=== PATIENT | male | born 1990 | race Hispanic/Latino ===

== ENCOUNTER 2018-10-26 07:45 | Inpatient (IN) | payer OTHER, SELFPAY ==
[2018-10-26] MEDS ORDERED: Morphine 4 MG/ML VIAL ONE (08:25)
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
[2018-10-26 09:10] LABS: #Eosinphils 0.1 thou/uL (0.0-0.7); #Lymphocytes 1.1 thou/uL (1.20-3.40); #Monocytes 0.5 thou/uL (0.11-0.59); #Neutrophils 11.8 thou/uL (1.40-6.50); %Basophils 0.2 % (0.0-1.0); %Eosinophils 0.6 % (0.0-10.0); %Lymphocytes 8.1 % (21.0-51.0); Hemoglobin 16.2 g/dL (14.0-18.0); Mean Corpuscular HGB CONC 34.8 g/dL (32.0-36.0); Mean Corpuscular Hemoglobin 30.2 pg (27.0-31.0); Mean Platelet Volume 10.3 fL (7.4-10.4); Platelet Count 182 thou/uL (130-400); Red Blood Cell (RBC) Count 5.36 mill/uL (4.70-6.10); White Blood Cell (WBC) Count 13.6 thou/uL (4.8-10.8)
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
[2018-10-26 09:17] LABS: PTT 23.7 SEC (22.9-36.1); Prothrombin Time 13.4 SEC (12.0-14.7)
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
[2018-10-26 09:34] LABS: ALT (SGPT) 41 U/L (8-55); AST (SGOT) 41 U/L (5-34); Albumin 4.5 g/dL (3.5-5.0); Alkaline Phosphatase 68 U/L (40-150); Anion Gap 10 mmol/L (10-20); BUN (Urea Nitrogen) 14 mg/dL (8.9-20.6); Bilirubin, Total 0.6 mg/dL (0.2-1.2); Calc. Creatinine Clearance 0 mL/min (70-130); Calcium 9.1 mg/dL (7.8-10.44); Carbon Dioxide 25 mmol/L (22-29); Chloride 103 mmol/L (98-107); Estimated GFR-MDRD Greater than 90; Globulin 2.6 g/dL (2.4-3.5); Glucose 122 mg/dL (70-105); Potassium 3.6 mmol/L (3.5-5.1); Protein, Total 7.1 g/dL (6.0-8.3); Sodium 134 mmol/L (136-145)
[2018-10-26] MEDS ORDERED: Bupivacaine HCl 0.5%/Epinephrine 1:200,000/PF 30 ml Vial ONE (09:54)
[2018-10-26] MEDS ORDERED: Sodium Chloride 0.9% 10 ML ONE ×2 (09:55→13:57)
[2018-10-26] MEDS ORDERED: Bacitracin Zinc Ointment 30 gm TUBE ONE (09:55)
[2018-10-26] MEDS ORDERED: Thrombin 5000 UNITS/5 ML VIAL ONE (09:55)
[2018-10-26] MEDS ORDERED: Dexamethasone 10 MG/ML VIAL ONE (10:15)
[2018-10-26] MEDS ORDERED: ISOVUE-370 76%-LOCM 1 ML ONE (10:25)
[2018-10-26] MEDS ORDERED: Ondansetron PF 4 MG/2 ML Vial ONE ×2 (10:27→13:06)
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
[2018-10-26] MEDS ORDERED: HYDROmorphone 2 MG/ML VIAL ONE (11:29)
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
[2018-10-26] MEDS ORDERED: PROPOFOL 200 MG/20 ML VIAL ONE (13:06)
[2018-10-26] MEDS ORDERED: Metoclopramide HCl 10 MG/2 ML VIAL ONE (13:06)
[2018-10-26] MEDS ORDERED: Lidocaine 1% PF 5 ML VIAL ONE (13:06)
[2018-10-26] MEDS ORDERED: Rocuronium Bromide 10 MG/ML (10ML VIAL) ONE (13:06)
[2018-10-26] MEDS ORDERED: Succinylcholine Chloride 20 MG/ML 10 ml SYRINGE FS ONE (13:06)
[2018-10-26] MEDS ORDERED: Glycopyrrolate 0.2 MG/ML 5 ML SYRINGE ONE (13:06)
[2018-10-26] MEDS ORDERED: PHENYLEPHRINE-NS 100 MCG/ML 10 ML SYRINGE ONE (13:06)
[2018-10-26] MEDS ORDERED: ePHEDrine 50 MG/ML VIAL ONE (13:06)
[2018-10-26] MEDS ORDERED: Dexamethasone 20 MG/5 ML VIAL ONE (13:06)
[2018-10-26] MEDS ORDERED: CEFAZOLIN 1 GM VIAL ONE (15:36)
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
[2018-10-26] MEDS ORDERED: Mag-Al 1200 mg/1200 mg/30 ML UDCUP PO PRN (15:40)
[2018-10-26] MEDS ORDERED: Ondansetron PF 4 MG/2 ML Vial IVP PRN (15:40)
[2018-10-26] MEDS ORDERED: Morphine 4 MG/ML VIAL SLOW IVP PRN (15:40)
[2018-10-26] MEDS ORDERED: Morphine 2 MG/ML SYRINGE SLOW IVP PRN (15:40)
[2018-10-26] MEDS ORDERED: Bisacodyl 10 MG SUPP PR PRN (15:40)
[2018-10-26] MEDS ORDERED: Promethazine HCl 25 MG/ML VIAL IM PRN ×4 (15:40→18:01)
[2018-10-26] MEDS ORDERED: diphenhydrAMINE 25 MG CAP PO PRN (15:40)
[2018-10-26] MEDS ORDERED: diphenhydrAMINE 50 MG/ML VIAL IVP PRN (15:40)
[2018-10-26] MEDS ORDERED: Acetaminophen/Codeine 30-300mg Tablet PO PRN ×2 (15:40)
[2018-10-26] MEDS ORDERED: traMADol HCl 50 MG TAB PO PRN ×3 (15:40→18:01)
[2018-10-26] MEDS ORDERED: Acetaminophen 325 MG TAB PO PRN (15:40)
[2018-10-26] MEDS ORDERED: tiZANidine HCl 4 MG TAB PO PRN (15:40)
[2018-10-26] MEDS ORDERED: Promethazine 25 MG TAB PO PRN (15:40)
[2018-10-26] MEDS ORDERED: Milk Of Magnesia 30 ML UDCUP PO PRN (15:40)
[2018-10-26] MEDS ORDERED: Promethazine HCl 25 MG/ML VIAL SLOW IVP PRN (15:56)
[2018-10-26] MEDS ORDERED: Acetaminophen 1,000 MG in Premix Bag 1 BAG IVPB PRN (15:56)
[2018-10-26] MEDS ORDERED: Meperidine HCl/PF 25 MG/ML VIAL SLOW IVP PRN (15:56)
[2018-10-26] MEDS ORDERED: Ketorolac Tromethamine 30 MG/ML VIAL IVP PRN (15:56)
[2018-10-26] MEDS ORDERED: Ondansetron HCl/PF 4 MG/2 ML Vial IVP PRN (15:56)
[2018-10-26] MEDS ORDERED: Meperidine HCl/PF 25 MG/ML VIAL ONE (15:59)
[2018-10-26] MEDS ORDERED: Fentanyl 100 MCG/2 ML VIAL ONE ×2 (16:15→16:30)
[2018-10-26] MEDS ORDERED: Esmolol 100 MG/10 ML VIAL ONE (16:26)
[2018-10-26] MEDS ORDERED: Metoprolol Tartrate 5 MG/5 ML VIAL ONE (17:44)
[2018-10-26] MEDS ORDERED: Dexamethasone 4 mg/ml Vial ONE (17:56)
[2018-10-26] MEDS ORDERED: Metoprolol Tartrate 5 MG/5 ML VIAL IVP PRN ×2 (17:56→17:57)
[2018-10-26] MEDS ORDERED: Dextrose 50% Abboject 50 ML SYRINGE SLOW IVP PRN (18:01)
[2018-10-26] MEDS ORDERED: Ondansetron ODT 4 MG TAB PO PRN (18:01)
[2018-10-26] MEDS ORDERED: hydrALAZINE 20 MG/ML VIAL SLOW IVP PRN (18:01)
[2018-10-26] MEDS ORDERED: Acetaminophen 1,000 MG in Premix Bag 1 BAG IVPB SCH (18:01)
[2018-10-26] MEDS ORDERED: Dextrose 5% in Water 1,000 ML IV PRN (18:01)
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
--- NOTE | 2018-10-26 20:00 | OP ---
DATE OF PROCEDURE: 10/26/2018 BISQUE KILN PLACER: Diana Wright PA-C. PREOPERATIVE INDICATION: Prevent neurological deterioration. PREOPERATIVE DIAGNOSES: C6-C7 fracture dislocation with bilateral jumped facets, lateral mass fractures C6-C7 on the left side. POSTOPERATIVE DIAGNOSES: C6-C7 fracture dislocation with bilateral jumped facets, lateral mass fractures C6-C7 on the left side. PROCEDURES PERFORMED: Part one: Anterior cervical diskectomy, intervertebral arthrodesis, and placement of intervertebral biomechanical device C6-C7, anterior cervical plating C6-C7, local morselized autograft, morselized allograft, and operating microscope. Part two: C6-C7 laminectomy, wide left-sided C6-C7 foraminotomy, reduction of loose fracture fragments off the nerve root, lateral mass screw and karlos instrumentation with posterolateral arthrodesis at C6-C7. DESCRIPTION OF PROCEDURE: Part one: The patient was brought to the operating room. Keeping the neck in normal anatomic alignment and the cervical collar on. The patient was carefully positioned on the operating table with his head supported by a doughnut-shaped headrest. General endotracheal anesthesia was induced using a direct visualization with a scope of the vocal cords. A lateral fluoro radiograph was used to plan our incision. The right side of the neck was sterilely prepped and draped. We opened with a 10 blade knife and controlled bleeding with bipolar cautery. We dissected sharply to the platysma and cut this muscle in line with our incision. We continued our dissection medial to the sternocleidomastoid and lateral to the trachea and esophagus down the prevertebral space. There were no unusual findings during our dissection except for a blood products at the C6-C7 interspace in the longus colli muscles. A lateral fluoro radiograph confirmed the levels upon which we were operating. With the patient under general anesthesia, we applied gentle traction to the neck externally and this immediately reduce the subluxation. C6 and C7 were in alignment. We elevated the longus colli muscles off the anterior surface of C6 and C7, and placed a self-retaining retractor beneath them. Distraction pins were placed at C6 and C7, and we distracted across the interspace. There was no structural integrity to the interspace. We incised with a 15 blade knife and removed disk contents using curettes and rongeurs. As we approached the posterior longitudinal ligament, the operative microscope was brought into the field. Under microscopic magnification and using microsurgical techniques, we carefully removed the remainder of the intervertebral disk. Using a micro curette, we accessed the ventral epidural space behind the posterior longitudinal ligament. In the midline, CSF egress was noted from the ventral epidural space, which was significant. The dura had been disrupted by the fracture dislocation. We left some strands of posterior longitudinal ligament, but used a micro ball probe to ensure there was no disk material in the ventral epidural space and no compression of the dura. We widely open both neural foramina as well. We then turned our attention to arthrodesis. Using curettes, we prepared the endplates for grafting by removing the cartilaginous cap. A 9-mm bone rasp was brought into the field to measure the height of the interspace. This also prepared the bones for arthrodesis. Osteophytes removed during our decompression and exposure cleaned their soft tissue attachments morcellized and added to demineralized bone matrix as our fusion substrate. The substrate was packed into the 9 mm PEEK graft that we brought into the field. Before placement of the interbody device, we used Tisseel tissue sealant at the back of the interspace to stem and tie the CSF. We then placed the interbody graft in position under radiographic guidance. Distraction pins were removed, and a 14 mm anterior cervical plate was brought into the field. We drilled airline pilot holes through the plate into the vertebral bodies at C6 and C7 and affixed the plate using 14 mm screws. We used fixed angle screws at C7 and variable angle screws at C6. We engaged the locking mechanism over each of the 4 screws. We irrigated with bacitracin irrigation. We then used Tisseel tissue sealant around the sides of the plate and prevertebral space to control CSF as well. We then used vancomycin powder in the wound, we closed the wound in anatomical layers, and we applied a sterile dressing. This portion of the case was clean. No contamination. Part two: Because of the laxity of the interspace, and the presence of CSF egress, we decided that future surgical intervention should be avoided at all costs and decided to proceed with the posterior instrumentation as well. This would provide structural integrity, where the facet capsules had been completely disrupted. Garnett pin and overhead crane technician were carefully attached to the patient's head. Keep the neck in normal anatomic alignment, the patient was rolled from one operating table on to the next in a prone position with his chest and hips supported by gel-filled chest rolls. The head was mobilizing it using the Garnett pin and overhead crane technician. The patient was strapped to the bed. A lateral fluoro radiograph was used to plan our incision. The back and neck were sterilely prepped and draped. We opened the midline incision with a 10 blade knife and controlled bleeding with bipolar cautery. We used monopolar cautery to dissect through to the ligamentum nuchae. We reflected the ligamentum nuchae in the paraspinal muscles off the spinous processes and lamina from the bottom of C5 to the top of T1. Self-retaining retractors were placed, and a lateral fluoro radiograph confirmed the levels upon which we were operating. In the patient's right side, the C6-C7 facet joint was wide, but the lateral masses were intact. At C6-C7 on the left, however, the superior articular process of C7 was loosely floating and indenting the posterior aspect of the C7 nerve root. The inferior portion of the infra-articular process of C6 was also fractured off. CSF egress was seen from the interlaminar space. We performed a small laminectomy of the inferior portion of C6 and superior portion of C7 across the interspace to ensure there was adequate dural decompression. There was no evidence that the dura was under any pressure. There was CSF egress from the posterior epidural space, especially off to the left. Carefully with 1 and 2 mm Kerrison rongeurs, we removed bone from the fracture fragment that was loose in the foramen on the left. We did this until we were well past the lateral aspect of the foramen and the remnant of the bone was quite tiny and no longer compressive. Micro ball probe was passed lateral to the spine with the C7 nerve root and we felt no further compression. We turned our attention to arthrodesis. Using bony anatomic landmarks, we chose entry points for our lateral mass screws at C6 and C7 bilaterally. We drilled out our entry points and then used a high-speed drill, directing our screw trajectories superiorly and laterally. We probed each trajectory and found it completely encased in bone. On the right, we placed 14 mm screws and on the left, 12 mm screws in the lateral masses at C6 and C7. We brought the rods down in the screw heads and tightened caps over the rods. Using a torque/counter-torque mechanism, we ensured adequate tightness. We irrigated once again with bacitracin irrigation. We decorticated the lateral aspect of the lateral masses at C6 and C7 and over the decorticated bone, we left demineralized bone matrix, morselized autograft as our posterolateral fusion substrate. We treated the center of the canal with DuraSeal tissue sealant and the left foramina as well, which was widely opened during our reduction of the fracture fragment. This helped the stem to tie CSF egress. We tunneled drain inferiorly through a separate stab incision to control the CSF over the next week or so and allow the wound to close. We treated the wound with vancomycin powder and closed in anatomical layers over the drain. This was a clean case, no contamination. Job ID: [id number]
[2018-10-26 20:14] LABS: #Lymphocytes 0.5 thou/uL (1.20-3.40); #Monocytes 0.1 thou/uL (0.11-0.59); #Neutrophils 9.2 thou/uL (1.40-6.50); %Basophils 0.1 % (0.0-1.0); %Eosinophils 0.1 % (0.0-10.0); %Lymphocytes 5.3 % (21.0-51.0); %Monocytes 0.9 % (0.0-10.0); %Neutrophils 93.6 % (42.0-75.0); Hemoglobin 14.6 g/dL (14.0-18.0); Mean Corpuscular HGB CONC 34.5 g/dL (32.0-36.0); Mean Corpuscular Hemoglobin 30.7 pg (27.0-31.0); Mean Corpuscular Volume 88.9 fL (78.0-98.0); Mean Platelet Volume 10.1 fL (7.4-10.4); Platelet Count 184 thou/uL (130-400); RBC Distribution Width 12.2 % (11.5-14.5); Red Blood Cell (RBC) Count 4.77 mill/uL (4.70-6.10); White Blood Cell (WBC) Count 9.9 thou/uL (4.8-10.8)
[2018-10-26 21:24] VITALS: BMI 33.1
[2018-10-26] MEDS: Dexamethasone 4 mg/ml Vial SLOW IVP SCH ×2 (21:25→23:07)
[2018-10-26] MEDS: Sodium Chloride 0.9% 1,000 ML IV SCH ×4 (21:25→23:10)
[2018-10-26] MEDS: Ibuprofen 800 MG TAB PO SCH (21:26)
[2018-10-26] MEDS: Famotidine 20 MG TAB PO SCH (21:26)
[2018-10-26] MEDS: Acetaminophen 1,000 MG in Premix Bag 1 BAG IVPB SCH (22:34)
[2018-10-26] MEDS: CEFAZOLIN 2 GM in Premix Bag 1 BAG IVPB SCH (23:07)
[2018-10-26] MEDS ORDERED: Acetaminophen 500 MG TAB PO SCH (23:59)
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
[2018-10-27] MEDS: Acetaminophen 1,000 MG in Premix Bag 1 BAG IVPB SCH ×2 (05:26→14:31)
[2018-10-27] MEDS: Sodium Chloride 0.9% 1,000 ML IV SCH ×2 (05:27→12:51)
[2018-10-27] MEDS: Ibuprofen 800 MG TAB PO SCH ×2 (05:28→15:41)
[2018-10-27] MEDS: Dexamethasone 4 mg/ml Vial SLOW IVP SCH ×4 (05:29→23:22)
[2018-10-27] MEDS: CEFAZOLIN 2 GM in Premix Bag 1 BAG IVPB SCH ×3 (06:20→23:19)
[2018-10-27 06:40] LABS: #Lymphocytes 0.8 thou/uL (1.20-3.40); #Monocytes 0.4 thou/uL (0.11-0.59); #Neutrophils 8.5 thou/uL (1.40-6.50); %Basophils 0.1 % (0.0-1.0); %Lymphocytes 7.9 % (21.0-51.0); Hemoglobin 13.5 g/dL (14.0-18.0); Mean Corpuscular HGB CONC 34.1 g/dL (32.0-36.0); Mean Corpuscular Hemoglobin 30.6 pg (27.0-31.0); Mean Corpuscular Volume 89.7 fL (78.0-98.0); Mean Platelet Volume 10.1 fL (7.4-10.4); Platelet Count 178 thou/uL (130-400); RBC Distribution Width 12.2 % (11.5-14.5); Red Blood Cell (RBC) Count 4.41 mill/uL (4.70-6.10); White Blood Cell (WBC) Count 9.6 thou/uL (4.8-10.8)
[2018-10-27 06:57] LABS: Anion Gap 12 mmol/L (10-20); BUN (Urea Nitrogen) 17 mg/dL (8.9-20.6); Calc. Creatinine Clearance 153 mL/min (70-130); Calcium 8.4 mg/dL (7.8-10.44); Carbon Dioxide 23 mmol/L (22-29); Chloride 105 mmol/L (98-107); Estimated GFR-MDRD Greater than 90; Glucose 143 mg/dL (70-105); Potassium 3.9 mmol/L (3.5-5.1); Sodium 136 mmol/L (136-145)
--- NOTE | 2018-10-27 07:54 | PRG ---
DATE OF SERVICE: 10/27/2018 I saw Mr. Omega Grant in his IMCU room this morning. He is resting comfortably after his surgery yesterday. There is some degree of pain in the left arm with numbness in the middle digits and a sense of weakness. Overnight, his T-max was 100.0 degrees Fahrenheit. All his other vital signs have been stable. Indeed there is triceps and finger extensor weakness on the left side. There is numbness in the C7 distribution, as might be expected given the compression of the C7 nerve root we saw during his operation. We did mobilize the fracture fragment out of the back of that nerve. His other neurological function is quite good. I do not find any long tract signs. A good CSF leak was noted during his operation, we left a drain in. I am going to leave the drain in for about a week. So far, there is a combination of blood and CSF coming from the drain. We are going to keep his head up so that his lumbar cistern fills with CSF and the cervical cistern is less stretched. When we are convinced there is good wound healing of both the anterior and posterior operations and we have controlled all of CSF into the drain and we can think about tapering it off and removing it, but for now we are going to leave it in with some drain suction at all times. Job ID: [id number]
[2018-10-27] MEDS: Famotidine 20 MG TAB PO SCH ×2 (09:59→19:54)
--- NOTE | 2018-10-27 11:53 | RAD ---
EXAM: XR Barium Swallow Esophagus PROVIDED CLINICAL HISTORY: Evidence for esophageal injury on prior imaging COMPARISON: None FINDINGS: Evaluation is limited due to postoperative change and cervical collar. Single contrast esophagram foc used on the region of the lower cervical and upper thoracic esophagus was performed with both Gastrografin and barium. There is no evidence for contrast extravasation from the esophagus. Remainde r of the thoracic esophagus demonstrates a normal single contrast appearance. IMPRESSION: No evidence for contrast extravasation.
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
[2018-10-27] MEDS ORDERED: Acetaminophen 325 MG TAB PO PRN (20:00)
[2018-10-27] MEDS ORDERED: Acetaminophen/Codeine 30-300mg Tablet PO PRN (20:00)
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
[2018-10-28] MEDS: CEFAZOLIN 2 GM in Premix Bag 1 BAG IVPB SCH ×3 (06:11→23:47)
[2018-10-28] MEDS: Dexamethasone 4 mg/ml Vial SLOW IVP SCH ×4 (06:12→23:47)
[2018-10-28] MEDS: Acetaminophen/Codeine 30-300mg Tablet PO PRN ×2 (07:10→15:46)
--- NOTE | 2018-10-28 09:09 | PRG ---
DATE OF SERVICE: 10/28/2018 I saw Mr. Omega Grant in the hospital room this morning. His said yesterday was a good day. He continues to have some left arm pain and now complains of some foot pain. His vitals have been stable. His neurological examination is unchanged from yesterday. While Mr. Omega Grant is in bed, he does not need a collar on. When he sits up or gets out of bed, I would like him to have the collar on. We are going to leave the drain in for now. My plan is to leave the drain in a significant amount of time to control any CSF egress from his disrupted dura. Once it is well controlled, the wound is healing nicely, then we can pull the drain, this maybe a week or two. If it tapers off to no output whatsoever, then we can remove it earlier. His expresses her understanding of the plan. Job ID: [id number]
[2018-10-28] MEDS: Famotidine 20 MG TAB PO SCH ×2 (09:57→21:24)
[2018-10-28] MEDS ORDERED: Melatonin 3 MG TAB PO PRN (15:43)
[2018-10-28] MEDS: Ondansetron PF 4 MG/2 ML Vial IVP PRN (15:47)
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
[2018-10-29] MEDS: Dexamethasone 4 mg/ml Vial SLOW IVP SCH ×4 (06:18→23:18)
[2018-10-29] MEDS: CEFAZOLIN 2 GM in Premix Bag 1 BAG IVPB SCH ×3 (06:18→23:19)
[2018-10-29] MEDS: Acetaminophen/Codeine 30-300mg Tablet PO PRN ×4 (06:40→17:30)
[2018-10-29] MEDS ORDERED: ALPRAZolam 0.5 MG TAB PO PRN (06:44)
--- NOTE | 2018-10-29 07:00 | PRG ---
DATE OF SERVICE: 10/29/2018 I saw Mr. Omega Grant in his hospital room this morning. The drain remains in place. There is no suction on at this morning, so I placed a thumbprint suction. There have been no fevers recorded overnight. Blood pressure is under good control. Neurological function is unchanged with some C7 weakness and numbness, improved since before the operation. Mr. Omega Grant has some significant output of cerebrospinal fluid to the drain. This output needs to be controlled. If we were to pull the drain out now, spinal fluid would accumulate under the cervical incision and the closure would become macerated with exposure to fluid and not hold. Therefore, controlling the CSF to the drain is our best plan for now. If this does not taper off in a week, then we may place a lumbar drain and remove the cervical drain afterwards. We will continue to monitor his progress and the drain output. A small amount of thumbprint suction needs to be on the bulb at all times. Job ID: [id number] [facility]
--- NOTE | 2018-10-29 08:35 | PRG ---
DATE OF SERVICE: 10/27/2018 SUBJECTIVE: Mr. Duff is doing well. No complaints. He is awaiting a swallowing test to see if it is safe to swallow. His heart rate is in the 80s. He is off all medicines. OBJECTIVE: LUNGS: Clear. CARDIAC: Normal S1, normal S2. ASSESSMENT: Sinus tachycardia related to surgery and postoperative status, have all resolved. PLAN: Okay to go off telemetry, can go to surgical floor for completeness. We will do echocardiogram. Job ID: [id number]
--- NOTE | 2018-10-29 08:40 | RAD ---
4 views of the cervical spine: 10/29/2018 COMPARISON: Cervical spine CT 10/26/2018 History: Evaluate cervical spine following fracture surgery FINDINGS: There is anterior and posterior fusion hardware at the C6-7 level. No anterolisthesis or re trolisthesis is noted. Previously noted anterolisthesis at C6-7 has been reduced. Open-mouth odontoid view demonstrates a normal-appearing dens and C1 to articulation. Previously noted fracture deformities of the articular pillars on the left at C6 and C7 noted on recent CT examination cannot be visualized on this examination secondary to obscuration by postoperative hardware. IMPRESSION: Postoperative changes as detailed above.
[2018-10-29] MEDS: Famotidine 20 MG TAB PO SCH ×2 (08:55→20:38)
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
[2018-10-29] MEDS: Ondansetron PF 4 MG/2 ML Vial IVP PRN (11:11)
--- NOTE | 2018-10-29 11:52 | PRG ---
DATE OF SERVICE: 10/29/2018 SUBJECTIVE: Romeo Grant is a 28-year-old male patient status post ORIF cervical and thoracic spine with a dural leak. Continue VIPIN drain per Neurosurgery hoping that it will diminish with time and if not, he may need a lumbar drain. White count 9 and hemoglobin 13. Basic metabolic profile normal. The patient is tolerating a regular diet. He has saline lock. VIPIN drain 290 for 24 hours. OBJECTIVE: LUNGS: Clear to auscultation. CARDIAC: Regular rate and rhythm without murmur or gallop. ABDOMEN: Soft and nontender. EXTREMITIES: Unremarkable. ASSESSMENT AND PLAN: Continue VIPIN drain for dural leak. Treatment per Neurosurgery. Mobility with therapy. He is walking. Job ID: [id number]
[2018-10-29] MEDS: Cyclobenzaprine 10 MG TAB PO PRN (12:34)
[2018-10-29] MEDS: traMADol HCl 50 MG TAB PO PRN ×2 (12:34→18:30)
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
--- NOTE | 2018-10-29 16:47 | EKG ---
Test Reason : Blood Pressure : / mmHG Vent. Rate : 140 BPM Atrial Rate : 140 BPM P-R Int : 122 ms QRS Dur : 112 ms QT Int : 292 ms P-R-T Axes : 056 082 047 degrees QTc Int : 445 ms Sinus tachycardia Incomplete right bundle branch block Borderline ECG Confirmed by JULEE HANNON ([id number]) on 10/29/2018 4:47:12 PM Referred By: Confirmed By:JULEE HANNON
[2018-10-29] MEDS: Acetaminophen/Codeine 30-300mg Tablet PO SCH (20:39)
[2018-10-29] MEDS: Gabapentin 300 MG CAP PO SCH (20:39)
[2018-10-29] MEDS ORDERED: Acetaminophen/Codeine 30-300mg Tablet PO SCH (21:00)
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
[2018-10-30] MEDS: Acetaminophen/Codeine 30-300mg Tablet PO SCH ×3 (01:04→09:57)
[2018-10-30] MEDS: Dexamethasone 4 mg/ml Vial SLOW IVP SCH ×4 (05:12→23:57)
[2018-10-30] MEDS: CEFAZOLIN 2 GM in Premix Bag 1 BAG IVPB SCH ×3 (06:10→23:56)
--- NOTE | 2018-10-30 07:29 | PRG ---
DATE OF SERVICE: 10/30/2018 I saw Mr. Omega Grant in the hospital room this morning. He had a positional headache yesterday from a CSF output. It was controlled with medication. He seems to be more comfortable this morning. His tells me this morning that she wants him transferred closer to [place], so she can see him in the hospital there as opposed to remaining here while she has to work. I am not sure if those arrangements are even possible. Overnight, I do not see any fevers recorded. His blood pressures have been in the 120s to 130s. His neurological examination is unchanged and the drain continues to pull CSF. My plan is to leave the larger drain through the weekend even into the weekend. I think given the amount of CSF coming out, we will have to transition to a lumbar drain. The lumbar drain can be placed on or Monday and will start draining through the lumbar drain which should give him less of a headache and tapering off the larger drain in the neck. Hopefully, the neck does not fill with CSF and the wound stays closed well approximated and uninfected. Job ID: [id number] [facility]
[2018-10-30] MEDS: Gabapentin 300 MG CAP PO SCH ×2 (09:43→20:24)
[2018-10-30] MEDS: Famotidine 20 MG TAB PO SCH ×2 (09:43→20:24)
[2018-10-30] MEDS: Acetaminophen 500 MG TAB PO SCH ×3 (11:08→23:57)
[2018-10-30] MEDS: traMADol HCl 50 MG TAB PO SCH ×3 (11:09→23:57)
[2018-10-30] MEDS: Cyclobenzaprine 10 MG TAB PO PRN (15:16)
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
[2018-10-31] MEDS: Dexamethasone 4 mg/ml Vial SLOW IVP SCH ×3 (06:13→21:20)
[2018-10-31] MEDS: Acetaminophen 500 MG TAB PO SCH ×4 (06:14→23:18)
[2018-10-31] MEDS: CEFAZOLIN 2 GM in Premix Bag 1 BAG IVPB SCH ×3 (06:14→23:18)
[2018-10-31] MEDS: traMADol HCl 50 MG TAB PO SCH ×4 (06:14→23:16)
--- NOTE | 2018-10-31 07:51 | PRG ---
DATE OF SERVICE: 10/31/2018 I saw Mr. Omega Grant in his hospital room this morning. He is resting comfortably. He had two headaches yesterday due to CSF egress. The CSF output over the last few days has been over 250 mL at least 40% to 50% of his total CSF output. His neurological examination is unchanged. Due to the high CSF output, I do not think this is going to seal up on its own with the drain in place. We are going to place a lumbar drain tomorrow. Once we divert to a lumbar drain bag, the output through the cervical drain will diminish. Once it is below a threshold for removal, we will do that, but we will leave the lumbar drain in, to control CSF over the coming days perhaps a week. When the lumbar drain is placed, we will start draining at 15 mL every 2 hours and we will leave it at that rate as long as he can tolerate it. When the lumbar drain is clamped, he can mobilize, but when it is draining, should stay in bed, but with the head of bed slightly up. While any drain is in his body, we will continue antibiotics. Job ID: [id number]
[2018-10-31] MEDS: Gabapentin 300 MG CAP PO SCH ×2 (08:16→21:20)
[2018-10-31] MEDS: Famotidine 20 MG TAB PO SCH ×2 (08:16→21:20)
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
[2018-10-31] MEDS: Ondansetron PF 4 MG/2 ML Vial IVP PRN (20:01)
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
[2018-11-01] MEDS: traMADol HCl 50 MG TAB PO SCH ×4 (06:11→23:03)
[2018-11-01] MEDS: Acetaminophen 500 MG TAB PO SCH ×4 (06:12→23:02)
[2018-11-01] MEDS: CEFAZOLIN 2 GM in Premix Bag 1 BAG IVPB SCH ×3 (06:13→23:02)
[2018-11-01] MEDS: Dexamethasone 4 mg/ml Vial SLOW IVP SCH ×3 (06:13→21:02)
[2018-11-01] MEDS: Gabapentin 300 MG CAP PO SCH ×3 (08:32→20:57)
[2018-11-01] MEDS: Famotidine 20 MG TAB PO SCH ×2 (08:33→20:57)
--- NOTE | 2018-11-01 09:26 | PRG ---
DATE OF SERVICE: 11/01/2018 Mr. Omega Grant is doing well. He is sitting up at bedside as I came in the room this morning. His VIPIN drain is putting out significant amount of CSF and we are going to place a lumbar drain to try to get that under better control. Through the lumbar drain, will be draining at least 15 mL every 2 hours and as the drainage from the neck drain tapers off, we will remove it likely after two days. For 3 to 5 subsequent days, we will continue our lumbar drainage and taper it slowly watching the cervical wounds to make sure there is no evidence of increasing fluid collection there. Job ID: [id number]
[2018-11-01] MEDS ORDERED: Diazepam 5 MG TAB PO SCH (11:30)
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
--- NOTE | 2018-11-01 15:02 | SPC ---
EXAM: SPC LUMBAR PUNCTR ONLY W FLUOR PROVIDED CLINICAL HISTORY: Patient is post surgery of the cervical spine secondary to cervical spine fracture. Patient currently has cerebral spinal fluid leak. Percutaneous needle placement into the thecal sac of the lumbar spine was requested for placement of a lumbar CSF drain. COMPARISON: None FINDINGS: After informed consent was obtained, the patient was placed on the angiography table in supine positi on. An area overlying the L3-4 level was marked, and the area was then meticulously prepped and draped in usual sterile fashion. The skin and subcutaneous tissues were infiltrated with buffered 1% lidocaine for local anesthesia. Utilizing fluoroscopic guidance, a 14-gauge spinal needle was advanced into the thecal sac. The needle was removed with a return of clear cerebral spinal fluid. Se veral attempts at placement of a lumbar drain through the spinal needle by the neurosurgical physician's manufacturing assistant's was unsuccessful. Removal of the needle and replacement with a new spinal nee dle was requested. As result, a new spinal needle was again advanced at the L3-4 level. Inner stylette was removed, and again there was a return of clear cerebral spinal fluid. Remainder of the p rocedure was performed by the neurosurgical physician's manufacturing assistant, and a lumbar drain was able to be placed at this time. Placement of the lumbar catheter will be dictated as a separate report by the physicians manufacturing assistant. Fluoroscopy: Time-1.1 minutes Total dose-4230 mGy centimeter squared IMPRESSION: Technically successful lumbar puncture at the L3-4 level with return of clear cerebral spinal fluid. The needle was utilized for placement of a lumbar drain by the neurosurgical physician's manufacturing assistant. The remainder of the study was performed by the physicians manufacturing assistant.
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
[2018-11-02 05:45] LABS: #Lymphocytes 1.3 thou/uL (1.20-3.40); #Monocytes 0.5 thou/uL (0.11-0.59); #Neutrophils 7.8 thou/uL (1.40-6.50); %Basophils 0.2 % (0.0-1.0); %Eosinophils 0.3 % (0.0-10.0); %Lymphocytes 13.8 % (21.0-51.0); %Monocytes 5.3 % (0.0-10.0); %Neutrophils 80.4 % (42.0-75.0); Hemoglobin 15.3 g/dL (14.0-18.0); Mean Corpuscular HGB CONC 34.5 g/dL (32.0-36.0); Mean Corpuscular Hemoglobin 30.3 pg (27.0-31.0); Mean Corpuscular Volume 87.9 fL (78.0-98.0); Mean Platelet Volume 10.2 fL (7.4-10.4); Platelet Count 206 thou/uL (130-400); RBC Distribution Width 11.9 % (11.5-14.5); Red Blood Cell (RBC) Count 5.04 mill/uL (4.70-6.10); White Blood Cell (WBC) Count 9.6 thou/uL (4.8-10.8)
[2018-11-02 05:57] LABS: Anion Gap 10 mmol/L (10-20); BUN (Urea Nitrogen) 21 mg/dL (8.9-20.6); Calc. Creatinine Clearance 135 mL/min (70-130); Carbon Dioxide 30 mmol/L (22-29); Chloride 97 mmol/L (98-107); Estimated GFR-MDRD 86; Glucose 118 mg/dL (70-105); Magnesium 2.4 mg/dL (1.6-2.6); Phosphorus 4.5 mg/dL (2.3-4.7); Potassium 4.4 mmol/L (3.5-5.1); Sodium 133 mmol/L (136-145)
[2018-11-02] MEDS: traMADol HCl 50 MG TAB PO SCH ×4 (06:09→23:03)
[2018-11-02] MEDS: CEFAZOLIN 2 GM in Premix Bag 1 BAG IVPB SCH ×3 (06:09→23:02)
[2018-11-02] MEDS: Dexamethasone 4 mg/ml Vial SLOW IVP SCH (06:09)
[2018-11-02] MEDS: Acetaminophen 500 MG TAB PO SCH ×4 (06:10→23:02)
--- NOTE | 2018-11-02 07:14 | PRG ---
DATE OF SERVICE: 11/02/2018 Mr. Omega Grant had lumbar drain placement yesterday. He was draining 15 mL every 2 hours from the lumbar drain. Overnight, he has no complaints. There is no fever recorded. His other vital signs are stable. His neurological function is stable. There is still some C7 weakness on the left. The drain output from the wound drain in the posterior cervical area has gone down since the lumbar drain is placed, but has not tapered off significantly. We may increase the lumbar drainage to 20 mL an hour. I am noticing his medications include Decadron, and I do not see a reason for him to be on that. It is complicating wound healing and dural closure. Job ID: [id number]
--- NOTE | 2018-11-02 08:33 | OP ---
DATE OF PROCEDURE: 11/01/2018 PROCEDURE PERFORMED: Lumbar drain. Under fluoro guidance, Dr. Malik obtained access to lumbar spine. Using needle from lumbar drain kit, placement was made lumbar spine to access CSF. CSF was appreciated through needle. Catheter was slowly inserted through needle and then withdrawn off with catheter. Sutures held lumbar drain in place. CSF was appreciated through drain, and drain was attached to the CSF drainage system and clamped off. Sterility was maintained during the procedure, and Mr. Omega Grant did well. Job ID: [id number]
[2018-11-02] MEDS: Famotidine 20 MG TAB PO SCH ×2 (08:37→20:23)
[2018-11-02] MEDS: Gabapentin 300 MG CAP PO SCH ×3 (08:37→20:23)
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
[2018-11-03] MEDS: Acetaminophen 500 MG TAB PO SCH ×4 (05:19→23:10)
[2018-11-03] MEDS: traMADol HCl 50 MG TAB PO SCH ×4 (05:19→23:11)
[2018-11-03] MEDS: CEFAZOLIN 2 GM in Premix Bag 1 BAG IVPB SCH ×3 (06:17→23:10)
[2018-11-03] MEDS ORDERED: Dexamethasone 4 MG TAB PO SCH (09:00)
[2018-11-03] MEDS: Gabapentin 300 MG CAP PO SCH ×3 (09:56→20:57)
[2018-11-03] MEDS: Famotidine 20 MG TAB PO SCH ×2 (09:56→20:57)
--- NOTE | 2018-11-03 11:21 | PRG ---
DATE OF SERVICE: 11/03/2018 SUBJECTIVE: Mr. Duff is up on the surgical floor this morning in a chair by the bedside, eating breakfast. Denying any significant discomforts. Cervical VIPIN drain is still putting out serosanguineous fluid and lumbar drain is still draining 20 mL every 2 hours. We will plan to leave this VIPIN drain in for another day and then potentially remove tomorrow. His lumbar drain will be in definitively over the weekend. There was concern about some saturation of the dressing by the lumbar drain. However, when I look at this morning, I do not feel like there is any need to change this. We will continue to just monitor there. He can mobilize as tolerated. Job ID: [id number]
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
[2018-11-04] MEDS: CEFAZOLIN 2 GM in Premix Bag 1 BAG IVPB SCH ×3 (06:24→23:45)
[2018-11-04] MEDS: traMADol HCl 50 MG TAB PO SCH ×4 (06:24→23:45)
[2018-11-04] MEDS: Acetaminophen 500 MG TAB PO SCH ×4 (06:24→23:45)
[2018-11-04] MEDS: Famotidine 20 MG TAB PO SCH ×2 (08:20→20:43)
[2018-11-04] MEDS: Gabapentin 300 MG CAP PO SCH ×3 (08:20→20:43)
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
--- NOTE | 2018-11-04 14:09 | PRG ---
DATE OF SERVICE: 11/04/2018 Mr. Grant continues to recover from an anterior, posterior cervical spine procedure for fracture. I met with him in his room this morning as well as additional family members. He is sitting up in a chair, resting comfortably, reports minimal pain. He reports no postural headache. He continues to have a lumbar drain, which is patent and working well. He has a VIPIN drain, which has output that has fluctuated over the last 2 to 3 days. It is starting to diminish to the point, where it could be removed at later today or tomorrow morning. Job ID: [id number]
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
[2018-11-05] MEDS: CEFAZOLIN 2 GM in Premix Bag 1 BAG IVPB SCH ×3 (06:30→23:08)
[2018-11-05] MEDS: traMADol HCl 50 MG TAB PO SCH ×4 (06:31→23:08)
[2018-11-05] MEDS: Acetaminophen 500 MG TAB PO SCH ×4 (06:31→23:08)
--- NOTE | 2018-11-05 07:44 | PRG ---
DATE OF SERVICE: 11/05/2018 I saw Mr. Omega Grant in his hospital room this morning. A 45 mL of CSF was drained from the wound drain last night at 8 p.m. I do not see any other recordings, and there is 3 to 5 mL in the bulb this morning. The lumbar drain is working well and they are draining 20 mL every 2 hours. I do not see any fevers recorded. His neurological examination is stable. The plan, if there is no more drainage from the cervical drain, is to remove that today. Showers and sponge baths would be fine to do today. I would not get the lumbar drain site wet, however. We will continue the lumbar drainage at 20 mL every 2 hours for another 24 hours, and then, we will begin tapering it off over the next few days and eventually clamp it. Hopefully, this is given as cervical incisions time to heal. Job ID: [id number]
[2018-11-05] MEDS ORDERED: Dexamethasone 4 MG TAB PO SCH (09:00)
[2018-11-05] MEDS: Famotidine 20 MG TAB PO SCH ×2 (09:04→21:07)
[2018-11-05] MEDS: Gabapentin 300 MG CAP PO SCH ×3 (09:06→21:07)
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
[2018-11-06] MEDS: traMADol HCl 50 MG TAB PO SCH ×4 (05:20→23:09)
[2018-11-06] MEDS: Acetaminophen 500 MG TAB PO SCH ×4 (05:21→23:09)
[2018-11-06] MEDS: CEFAZOLIN 2 GM in Premix Bag 1 BAG IVPB SCH ×3 (06:47→23:09)
--- NOTE | 2018-11-06 06:52 | PRG ---
DATE OF SERVICE: 11/06/2018 I saw Mr. Omega Grant in his hospital bed this morning. The wound drain has been removed. He had a sponge bath and he feels much wheel cleaner and better. The collar can stay off while he is bed. Vital signs have been stable and his neurological examination is stable as well. Our plan today is to decrease the CSF drainage from the lumbar drain. We will go down to 15 mL every 2 hours today, 10 mL Monday, 5 mL , and then we will clamp Monday. We will keep a close eye on the cervical incisions all day Monday and until Monday and if there is no evidence of reaccumulation of any spinal fluid, then the lumbar drain can be removed and he might be able to leave the hospital over the weekend. Once again, when he is resting in bed, the collar does need to be on, but when he is up and around, it should not be. Job ID: [id number]
[2018-11-06] MEDS: Famotidine 20 MG TAB PO SCH ×2 (08:55→20:59)
[2018-11-06] MEDS: Gabapentin 300 MG CAP PO SCH ×3 (08:55→20:59)
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
--- NOTE | 2018-11-07 06:37 | PRG ---
DATE OF SERVICE: 11/07/2018 I saw Mr. Omega Grant in his hospital room. He is tolerating the CSF drainage reasonably well. There is some CSF from around the tube and got the sheets a little bit yesterday, otherwise he is doing fine with it. Does not have significant headache. His neck feels well. There is no trouble with the incisions anteriorly and posteriorly around the cervical spine. I do not see any fevers recorded. The vitals are all stable. The neurological examination is unchanged. Plan is to decrease the cerebrospinal drainage to 10 mL an hour. We are going to have to accept some cerebrospinal drainage will come out around the drain, but we are tapering it off to 10 mL every 2 hours today and 5 mL every 2 hours tomorrow and thereafter will clamp it. If there is no significant accumulation of fluid in the cervical spine, then the drain can be removed on Monday or Monday. Job ID: [id number] [facility]TDD
[2018-11-07] MEDS: CEFAZOLIN 2 GM in Premix Bag 1 BAG IVPB SCH ×3 (06:46→23:01)
[2018-11-07] MEDS: traMADol HCl 50 MG TAB PO SCH ×4 (06:48→23:03)
[2018-11-07] MEDS: Acetaminophen 500 MG TAB PO SCH ×4 (06:48→23:03)
[2018-11-07] MEDS: Gabapentin 300 MG CAP PO SCH ×3 (10:28→21:03)
[2018-11-07] MEDS: Famotidine 20 MG TAB PO SCH ×2 (10:28→21:03)
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
[2018-11-08] MEDS: traMADol HCl 50 MG TAB PO SCH ×4 (06:42→23:03)
[2018-11-08] MEDS: Acetaminophen 500 MG TAB PO SCH ×4 (06:42→23:03)
[2018-11-08] MEDS: CEFAZOLIN 2 GM in Premix Bag 1 BAG IVPB SCH ×3 (06:43→23:04)
--- NOTE | 2018-11-08 08:56 | PRG ---
DATE OF SERVICE: 11/08/2018 Mr. Omega Grant is doing well. We decreased the drainage yesterday and will do so again today. He has no new complaints. He is just bored being in the hospital. Thankfully, his vital signs have been stable. Neurological examination is likewise stable. The plan is to decrease the drainage to 5 mL every 2 hours starting today and to clamp off his drain tomorrow. On Monday or Monday, the drain can be removed so long as fluid is not collecting in the soft tissues of the neck. A little drainage at the exit site of the drain is to be expected. Job ID: [id number]
[2018-11-08] MEDS: Gabapentin 300 MG CAP PO SCH ×3 (09:14→21:13)
[2018-11-08] MEDS: Famotidine 20 MG TAB PO SCH ×2 (09:14→21:13)
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
[2018-11-09] MEDS: traMADol HCl 50 MG TAB PO SCH ×2 (06:39→12:57)
[2018-11-09] MEDS: Acetaminophen 500 MG TAB PO SCH ×4 (06:39→23:38)
[2018-11-09] MEDS: CEFAZOLIN 2 GM in Premix Bag 1 BAG IVPB SCH ×3 (06:40→23:38)
--- NOTE | 2018-11-09 07:10 | PRG ---
DATE OF SERVICE: 11/09/2018 I saw Mr. Omega Grant in his hospital room today. He has been tolerating the weaning of his lumbar drain over the last few days. I do not see any alarming vital signs and his neurological examination is stable. Our plan today is to stop drainage of CSF, but to leave the lumbar drain in at least through tomorrow. The weekend team of Dr. Soto will evaluate the neck and make sure there is no collection of fluid in the anterior or posterior cervical incision, and if things look good and his neurological examination is stable, then the lumbar drain could be removed tomorrow or Monday. He can go home as soon as it is out. Job ID: [id number]
[2018-11-09] MEDS: Gabapentin 300 MG CAP PO SCH ×3 (09:18→20:22)
[2018-11-09] MEDS: Famotidine 20 MG TAB PO SCH ×2 (09:18→20:22)
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
[2018-11-10] MEDS: Acetaminophen 500 MG TAB PO SCH ×2 (06:10→12:27)
[2018-11-10] MEDS: CEFAZOLIN 2 GM in Premix Bag 1 BAG IVPB SCH ×2 (06:10→16:41)
[2018-11-10] MEDS: Famotidine 20 MG TAB PO SCH (08:11)
[2018-11-10] MEDS: Gabapentin 300 MG CAP PO SCH ×2 (08:12→16:41)
[2018-11-10] MEDS ORDERED: Lidocaine 1% (PF) 30 ML VIAL ONE (09:56)
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
[2018-11-10 12:26] VITALS: BP 126/83; TEMP 98.7
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
== END 2018-11-10 15:00 | disposition home or self-care (01) | DRG 454 ==
LOC: ERS 07:45 → SDC 11:04 → IMCU/EMU 11:51 → SURG A 10-27 11:55
PROVIDERS: ADMIT Surgery; ATTEND Surgery
PROC: 0RG10A0 Fusion of Cervical Vertebral Joint with Interbody Fusion Device, Anterior Approach, Anterior Column, Open Approach (ICD-10-PCS; principal; 2018-10-26)
PROC: 0RG1071 Fusion of Cervical Vertebral Joint with Autologous Tissue Substitute, Posterior Approach, Posterior Column, Open Approach (ICD-10-PCS; 2018-10-26)
PROC: 0RB30ZZ Excision of Cervical Vertebral Disc, Open Approach (ICD-10-PCS; 2018-10-26)
PROC: 01N10ZZ Release Cervical Nerve, Open Approach (ICD-10-PCS; 2018-10-26)
PROC: 009U3ZX Drainage of Spinal Canal, Percutaneous Approach, Diagnostic (ICD-10-PCS; 2018-11-01)
PROC: B01BZZZ Fluoroscopy of Spinal Cord (ICD-10-PCS; 2018-11-01)
PROC: 009U30Z Drainage of Spinal Canal with Drainage Device, Percutaneous Approach (ICD-10-PCS; 2018-11-01)
DX: S12.500A Unspecified displaced fracture of sixth cervical vertebra, initial encounter for closed fracture (principal); G96.0 Cerebrospinal fluid leak; G97.41 Accidental puncture or laceration of dura during a procedure; S12.600A Unspecified displaced fracture of seventh cervical vertebra, initial encounter for closed fracture; F17.210 Nicotine dependence, cigarettes, uncomplicated; M43.12 Spondylolisthesis, cervical region; V89.2XXA Person injured in unspecified motor-vehicle accident, traffic, initial encounter; R00.0 Tachycardia, unspecified; Y83.8 Other surgical procedures as the cause of abnormal reaction of the patient, or of later complication, without mention of misadventure at the time of the procedure; G44.89 Other headache syndrome
CPT/HCPCS: 36415; 62270; 70450; 70498; 71045; 72050; 72125; 72128; 72131; 74220; 76000; 80048; 80053; 83735; 84100; 85025; 85610; 85730; 93005; 93010; 93306; 93970; 96374; 96375; C1713; C1768; C1776; G0390; J0131; J0670; J0690; J1100; J1170; J1200; J2001; J2175; J2270; J2405; J2550; J2704; J2765; J3010; J3370; J3490; Q9966